=== PATIENT | female | born 1985 | race African-American/Black ===

== ENCOUNTER 2017-10-12 12:22 | Emergency (ER) | payer MEDICAID, OTHER ==
[~2017-10-12] VITALS: Ht 160 cm; Wt 86.6 kg
[~2017-10-12 12:22] MED LIST: AUGMENTIN 875-1 EAC1 ORAL; IBUPROFEN800 MG ORAL; ROBAXIN-750750 MG PO; XANAX1 MG ORAL
[2017-10-12 12:34] VITALS: BP 119/87
[2017-10-12] MEDS ORDERED: IBUPROFEN600 MG ORAL (13:00)
[2017-10-12] MEDS ORDERED: AMOXICILLIN500 MG ORAL (13:00)
[2017-10-12 13:09] VITALS: BP 119/87
--- NOTE | 2017-10-12 16:23 | Emergency Room Report ---
History of Present Illness General Chief Complaint: Sore Throat Source: Patient Present Illness HPI 31-year-old female presents ED for evaluation. Patient complaining of sore throat and cough for the last 5 days. Pain is throbbing, 5-10, nonradiating. Denies earache. Denies fever. Denies sick contacts or recent travel. No other aggravating factors. Denies any other associated symptoms Allergies: Coded Allergies: No Known Allergies (Unverified , 05/21/16) Patient History Past Medical History: none Past Surgical History: none Pertinent Family History: none Social History: Denies: smoking, alcohol use, drug use Now: No Immunizations: UTD Reviewed Nursing Documentation: PMH: Agreed, PSxH: Agreed Nursing Documentation-PMH Past Medical History: No Stated History Review of Systems All Other Systems: negative except mentioned in HPI Physical Exam Vital Signs Date Time Temp Pulse Resp B/P (MAP) Pulse Ox O2 Delivery O2 Flow Rate FiO2 10/12/17 12:31 98.6 93 16 119/87 98 Room Air Sp02 EP Interpretation: reviewed, normal General Appearance: no apparent distress, alert, GCS 15, non-toxic Head: normocephalic, atraumatic Eyes: bilateral eye normal inspection, bilateral eye PERRL ENT: hearing grossly normal, no angioedema, normal voice, TMs + canals normal, pharyngeal erythema, tonsillar exudate Neck: full range of motion, supple/symm/no masses Respiratory: chest non-tender, lungs clear, normal breath sounds, speaking full sentences Cardiovascular #1: regular rate, rhythm, no edema Cardiovascular #2: 2+ carotid (R), 2+ carotid (L), 2+ radial (R), 2+ radial (L) , 2+ dorsalis pedis (R), 2+ dorsalis pedis (L) Gastrointestinal: normal bowel sounds, non tender, soft, non-distended, no guarding, no rebound Rectal: deferred Genitourinary: normal inspection, no CVA tenderness Musculoskeletal: back normal, gait/station normal, normal range of motion, non- tender Neurologic: alert, oriented x3, responsive, motor strength/tone normal, sensory intact, speech normal Psychiatric: judgement/insight normal, memory normal, mood/affect normal, no suicidal/homicidal ideation Reflexes: 3+ bicep (R), 3+ bicep (L), 3+ tricep (R), 3+ tricep (L), 3+ knee (R) , 3+ knee (L) Skin: normal color, no rash, warm/dry, well hydrated Lymphatic: no adenopathy Medical Decision Making Diagnostic Impression: Primary Impression: Pharyngitis Qualified Codes: J02.9 - Acute pharyngitis, unspecified ER Course Hospital Course 31-year-old female presents to ED complaining of sore throat Differential diagnoses include: URI, pharyngitis, otitis media Clinical course Patient placed on stretcher. After initial history, physical exam reveals a female in no acute distress. Bilateral TM unremarkable. There is pharyngeal erythema w/ tonsillar exudates. No lymphadenopathy. Clinical findings consistent with pharyngitis. Reassurance given Diagnosis - pharyngitis Stable and discharged home with prescriptions for Motrin, amoxicillin. Instructed to followup with PMD. return to ED if symptoms recur or worsen Last Vital Signs Date Time Temp Pulse Resp B/P (MAP) Pulse Ox O2 Delivery O2 Flow Rate FiO2 10/12/17 13:09 98.6 91 16 119/87 98 Room Air Status: improved Disposition: HOME, SELF-CARE Condition: Stable Scripts Amoxicillin* (AMOXIL*) 500 Mg Capsule 500 MG ORAL THREE TIMES A DAY, #21 CAP Prov: MAC BALTAZAR M.D. 10/12/17 Ibuprofen* (MOTRIN*) 600 Mg Tablet 600 MG ORAL Q8H Y for For Pain, #30 TAB 0 Refills Prov: MAC BALTAZAR M.D. 10/12/17 Departure Forms: Return to Work Return to Work Date: Oct 14, 2017 Work Restrictions: None Patient Instructions: Pharyngitis, [id number] MAC BALTAZAR M.D. Oct 12, 2017 16:23
== END 2017-10-12 13:11 | disposition home or self-care (01) ==
LOC: EMR 12:53
DX: J02.9 Acute pharyngitis, unspecified (principal)
CPT/HCPCS: 99283